=== PATIENT | female | born 1995 | race Caucasian/White ===

== ENCOUNTER 2016-11-14 21:51 | Emergency (ER) | payer OTHER ==
--- NOTE | 2016-11-14 23:06 | EDPHY ---
H & P Time Seen by Provider: 11/14/16 22:40 HPI/ROS: HPI: 21-year-old female presents to emergency department with chief concern left 2nd finger laceration that occurred 30 minutes prior to arrival when she cut her finger with a blunt clean kitchen knife. Denies weakness, numbness, or tingling of her finger. Up-to-date with tetanus. No other injury at time of incident. Right-hand dominant. Washed with running water, covered with dressing, and presents for evaluation. ROS:10 point review of systems is negative other than as stated in HPI Smoking Status: Never smoked Physical Exam: Vital signs stable, reviewed by me General: Awake, alert, calm, cooperative. No acute distress. Head: Normalocephalic. Atraumatic. EENT: PERRLA. EOMI. CV: Distal pulses 2+ bilaterally. Brisk cap refill all extremities. Neuro: Alert. Oriented x 3. Speech clear. Sensation intact all extremities. Skin: Skin warm, dry. There is a 2.75 cm linear laceration located left 2nd finger, radial aspect of the dorsum of the middle phalanx Musculoskeletal: Strength 5+ all extremities. Full range of motion with 5+ strength of resistance to dorsiflexion and palmar flexion at the MCP J, PIPJ, DIPJ of the left 2nd finger. Constitutional: Initial Vital Signs Temperature (C) 36.9 C 11/14/16 21:53 Heart Rate 74 11/14/16 21:53 Respiratory Rate 16 11/14/16 21:53 Blood Pressure 122/91 H 11/14/16 21:53 O2 Sat (%) 97 11/14/16 21:53 O2 Delivery Mode Room Air Allergies/Adverse Reactions: amoxicillin trihydrate [From Augmentin] Allergy (Verified 11/14/16 21:53) animal dander Allergy (Verified 11/14/16 21:53) cephalexin monohydrate [From Keflex] Allergy (Verified 11/14/16 21:53) Penicillins Allergy (Verified 11/14/16 21:53) potassium clavulanate [From Augmentin] Allergy (Verified 11/14/16 21:53) Home Medications: Medication Instructions Recorded Aviane-28 Tablet 11/14/16 Medical Decision Making Procedures: After verbal consent was obtained and risks and benefits explained, the laceration was anesthetized using a total of 4 mL of 0.5% Marcaine. Lac then irrigated per protocol by master certified rv technician. Under sterile procedure, the wound was explored to its base with a gloved finger and no foreign body was identified. No deep structure identified. Wound was then draped and sterile procedure followed during laceration repair. Wound was repaired using # 7, 5-0 Prolene sutures. After repair, laceration cleansed, bacitracin and sterile dressing applied. Procedure performed by myself. Procedure was simple. Pt tolerated the procedure well. ED Course/Re-evaluation: Up-to-date with tetanus Departure - Departure Disposition: Home, Routine, Self-Care Clinical Impression: Finger laceration Qualifiers: Encounter type: initial encounter Qualifier Code: (S61.219A) Laceration without foreign body of unspecified finger without damage to nail, initial encounter Condition: Good Instructions: Finger Laceration (ED) Additional Instructions: Plan: We saw you here today at the ED with a laceration of your finger. We'll have you leave the dressing on for 24 hours then remove it and begin cleaning the area daily by letting warm, soapy water run over it, but do not scrub or rub the site. Remove dried blood with a Q-tip dipped in water. Apply a thin layer of antibiotic ointment. Continue this routine daily. Recheck urgently if the area develops redness, swelling, increased pain, or red streaking above the wound, or if you develop a fever. Return to the emergency department in 10 days for suture removal. Return prior to then if any issues or concerns. You may use 600 mg of ibuprofen every 6 hours for fever, inflammation, or pain. Always take ibuprofen with food and stay well hydrated while taking. Do not exceed the maximum allowable dose in a 24 hour period which is 2400 mg. Referrals: [place],. [Primary Care Provider] - As per Instructions
[2016-11-14 23:41] VITALS: BP 99/57; PULSE 78; RESP 20; TEMP 98.1; O2SAT 95
== END 2016-11-14 23:52 | disposition home or self-care (01) ==
PROC: 0HQGXZZ Repair Left Hand Skin, External Approach (ICD-10-PCS; principal; 2016-11-14)
DX: S61.211A Laceration without foreign body of left index finger without damage to nail, initial encounter (principal); W26.0XXA Contact with knife, initial encounter